=== PATIENT | female | born 1985 | race African-American/Black ===

== ENCOUNTER 2017-05-27 13:40 | Emergency (ER) | payer BC ==
[2017-05-27 13:47] VITALS: BP 134/83; PULSE 97; TEMP 98.3; BMI 35.6
--- NOTE | 2017-05-27 14:19 | PDOC ---
History of Present Illness - General Chief Complaint: Abscess Boil Stated Complaint: ABSCESS TO CHEST Time Seen by Provider: 05/27/17 13:45 - History of Present Illness Initial Comments: 05/27/17 14:48 "The patient is a 32 year old female with a significant PMH of DM and recurrent abscesses who presents to the emergency department with an abscess located on her mid-chest area. The patient denies fever, chills, or pain or drainage from the abscess. The patient states she saw her OB today who prescribed Bactrim and told her to come to the ER to have the abscess drained. The patient states she has had abscesses on her buttock, groin, and chest area in the past. Allergies: NKA Past surgical history: None reported. Social history: Smokes occassionally. No reported drug or alcohol use. " Past History - Past Medical History Allergies/Adverse Reactions: Allergies Allergy/AdvReac Type Severity Reaction Status Date / Time acetaminophen [From Vicodin] Allergy Verified 07/18/14 04:04 hydrocodone bitartrate Allergy Verified 07/18/14 04:04 [From Vicodin] Home Medications: Ambulatory Orders Sulfamethoxazole/Trimethoprim [Bactrim Ds Tablet] 1 each PO BID #14 tablet 05/27 COPD: No Diabetes: Yes Other medical history: RECURRENT ABSCESSES - Suicide/Smoking/Psychosocial Hx Smoking History: Never smoked Have you smoked in the past 12 months: Yes Number of Cigarettes Smoked Daily: 20 Information on smoking cessation initiated: Yes 'Breaking Loose' booklet given: 05/27/17 Hx Alcohol Use: No Drug/Substance Use Hx: No Substance Use Type: None Review of Systems - Review of Systems Comments:: 05/27/17 14:18 "GENERAL/CONSTITUTIONAL: No fever or chills. No weakness. HEAD, EYES, EARS, NOSE AND THROAT: No change in vision. No ear pain or discharge. No sore throat. CARDIOVASCULAR: No chest pain or shortness of breath. RESPIRATORY: No cough, wheezing, or hemoptysis. GASTROINTESTINAL: No nausea, vomiting, diarrhea or constipation. GENITOURINARY: No dysuria, frequency, or change in urination. MUSCULOSKELETAL: No joint or muscle swelling or pain. No neck or back pain. SKIN: + abscess to chest NEUROLOGIC: No headache, vertigo, loss of consciousness, or change in strength/ sensation. ENDOCRINE: No increased thirst. No abnormal weight change. HEMATOLOGIC/LYMPHATIC: No anemia, easy bleeding, or history of blood clots. ALLERGIC/IMMUNOLOGIC: No hives or skin allergy. " *Physical Exam - Vital Signs Last Vital Signs Temp Pulse Resp BP Pulse Ox 98.3 F 97 H 18 134/83 100 05/27/17 13:40 05/27/17 13:40 05/27/17 13:40 05/27/17 13:40 05/27/17 13:40 - Physical Exam Comments: 05/27/17 14:17 "GENERAL: Awake, alert, and fully oriented, in no acute distress HEAD: No signs of trauma EYES: PERRLA, EOMI, sclera anicteric, conjunctiva clear ENT: Auricles normal inspection, hearing grossly normal, nares patent, oropharynx clear without exudates. Moist mucosa NECK: Nontender, no stepoffs, Normal ROM, supple, no lymphadenopathy, JVD, or masses LUNGS: Breath sounds equal, clear to auscultation bilaterally. No wheezes, and no crackles HEART: Regular rate and rhythm, normal S1 and S2, no murmurs, rubs or gallops ABDOMEN: Soft, nontender, normoactive bowel sounds. No guarding, no rebound. No masses EXTREMITIES: Normal range of motion, no edema. No clubbing or cyanosis. No cords, erythema, or tenderness NEUROLOGICAL: Cranial nerves II through XII intact. 5/5 strength and sensation in all extremities, Normal speech, normal gait, normal cerebellar function SKIN: 1cm abscess to mid-chest area, minimal surrounding erythema, no active drainage " Procedures - Incision and Drainage I&D Site: Bilateral: Torso (Mid-chest area) Anesthesia: 1% Lidocaine Volume(ml): 2 Blade Size: 11 Attempts: 1 Complications: none Medical Decision Making - Medical Decision Making 05/27/17 14:17 32 F with DM presenting with abscess to mid-chest area. Abscess appears very superficial with no evidence of deeper infection and pt without any signs/ symptoms of systemic infection or bacteremia. - I&D - Wound culture 05/27/17 14:49 I&D performed with 3cc drainage of purulent material Wound culture collected Pt tolerated procedure well Will DC pt home with bactrim Pt is well appearing, with normal vitals. Clinically stable for DC at this time. I discussed the physical exam findings, ancillary test results and final diagnoses with the patient. I answered all of the patient's questions. The patient was satisfied with the care received and felt comfortable with the discharge plan and treatment plan. The patient agrees to follow up with the primary care physician within 24-72 hours. 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 If you experience worsening pain, swelling, redness, fevers, or any other concerning symptoms, return to the ER immediately. Otherwise, follow up with your primary doctor within 1 week to have your wound checked. - Post Discharge Activity - Attestations Physician Attestion: 05/27/17 15:03 I, Dr. Robinson Bashir MD, attest that this document has been prepared under my direction and personally reviewed by me in its entirety. I further attest, that it accurately reflects all work, treatment, procedures and medical decision -making performed by me.
[2017-05-27] MEDS ORDERED: SULFAMETHOXAZOLE/TRIMETHOPRIM 800MG/160MG D.S. TABLET PO ONE (15:03)
[2017-05-27] MEDS ORDERED: SULFAMETHOXAZOLE/TRIMETHOPRIM 800MG/160MG D.S. TABLET ONE (15:04)
== END 2017-05-27 15:20 | disposition home or self-care (01) ==
LOC: FER 13:40
PROC: 0H95XZZ Drainage of Chest Skin, External Approach (ICD-10-PCS; principal; 2017-05-27)
DX: L02.213 Cutaneous abscess of chest wall (principal); E11.9 Type 2 diabetes mellitus without complications; Z88.8 Allergy status to other drugs, medicaments and biological substances
CPT/HCPCS: 87070; 87077; 87205; 99284-25

== ENCOUNTER 2017-10-20 13:21 | Day surgery (SDC) | payer BC, OTHER ==
[2017-10-19 18:10] VITALS: BMI 35.5
[2017-10-20 14:05] LABS: BASO % 1.4 % (0-2.0); EOS % 2.8 % (0-4.5); HEMATOCRIT 37.7 % (32.4-45.2); HEMOGLOBIN 12.6 GM/dL (10.7-15.3); LYMPH % 45.9 % (8-40); MCH 28.5 pg (25.7-33.7); MCHC 33.4 g/dl (32.0-36.0); MEAN CELL VOLUME 85.4 fl (80-96); MEAN PLT VOLUME 7.1 fl (7.5-11.1); MONO % 8.4 % (3.8-10.2); NEUT % 41.5 % (42.8-82.8); PLATELET COUNT 321 K/MM3 (134-434); RBC 4.41 M/mm3 (3.60-5.2); RDW 14.2 % (11.6-15.6)
[2017-10-20] MEDS ORDERED: LIDOCAINE HCL/PF 2% SDV 5ML VIAL ONE (14:20)
[2017-10-20] MEDS ORDERED: MIDAZOLAM HCL 2 MG/2 ML SINGLE DOSE VIAL ONE ×2 (14:21)
[2017-10-20] MEDS ORDERED: PROPOFOL 20 ML ONE ×3 (14:21)
--- NOTE | 2017-10-20 15:51 | HP ---
History & Physical Update - History History: No Change - Physical Physical: No Change - Assessment Assessment: No Change - Plan Plan: No Change (no change from H&P 10/18)
[2017-10-20] MEDS ORDERED: ACETAMINOPHEN 325 MG TABLET (FP) PO PRN (15:52)
[2017-10-20] MEDS ORDERED: IBUPROFEN 800 MG/8 ML IJ IVPB PRN (15:52)
[2017-10-20] MEDS ORDERED: LACTATED RINGERS SOLUTION 1,000 ML IV SCH ×2 (16:00→16:30)
[2017-10-20] MEDS ORDERED: KETOROLAC TROMETHAMINE 30 MG/1 ML VIAL ONE (16:04)
[2017-10-20] MEDS ORDERED: PROMETHAZINE HCL 25 MG/1 ML VIAL IVPUSH PRN (16:17)
[2017-10-20] MEDS ORDERED: oxyCODONE HCL 5 MG TABLET PO PRN (16:17)
[2017-10-20] MEDS ORDERED: ONDANSETRON 4 MG/2 ML VIAL IVPUSH PRN (16:17)
[2017-10-20 16:57] VITALS: PULSE 76
[2017-10-20 17:12] LABS: ALBUMIN 3.6 g/dl (3.4-5.0); ANION GAP 12 MMOL/L (8-16); BLOOD UREA NITROGEN 10 mg/dL (7-18); CALCIUM 8.7 mg/dL (8.5-10.1); CHLORIDE 109 mmol/L (98-107); CO2 20 mmol/L (21-32); CREATININE 0.6 mg/dL (0.55-1.02); GLUCOSE,RANDOM 130 mg/dL (74-106); POTASSIUM 3.8 mmol/L (3.5-5.1); SGOT/AST 11 U/L (15-37); SGPT/ALT 20 U/L (12-78); SODIUM 141 mmol/L (136-145)
[2017-10-20 17:33] LABS: ALK PHOS 59 U/L (45-117); BILIRUBIN,TOTAL 0.4 mg/dL (0.2-1.0); TOT PROT 7.2 g/dl (6.4-8.2)
[2017-10-20 17:51] VITALS: BP 128/81; TEMP 97.6
--- NOTE | 2017-10-20 19:24 | OP ---
Operative Note - Note: Operative Date: 10/20/17 (dictation [id number]) Pre-Operative Diagnosis: missed Operation: suction D&C Findings: normal female genitalia Post-Operative Diagnosis: Same as Pre-op Surgeon: Rosaura Tapia Anesthesiologist/DIRECTOR OF ROTC: Shyam Rojas Anesthesia: MAC Specimens Removed: products of conception Estimated Blood Loss (mls): 10 Operative Report Dictated: Yes
--- NOTE | 2017-10-20 19:29 | HP ---
Admitting History and Physical - Admission Chief Complaint: Here for D&C for missed History of Present Illness: 32 yo female with missed here for suction D&C. Pt seen in office on 10/19, had ultrasound measuring fetus at 6 weeks 4 days, pt without cardiac activity. Fetus should have been measuring 8wks gestation. Pt denies pain/VB. Limitations to Obtaining History: No Limitations - Past Medical History ...LMP: 08/14/17 ...: Yes (miscarriage) Endocrine: Yes: Diabetes Mellitus Additional Past Medical History: sarcoidosis - Past Surgical History Additional Past Surgical History: D&C - Smoking History Smoking history: Never smoked Have you smoked in the past 12 months: Yes Aproximately how many cigarettes per day: 3 - Alcohol/Substance Use Hx Alcohol Use: Yes (occ) - Social History Usual Living Arrangement: Yes: Alone History of Recent Travel: No Home Medications - Allergies Allergies/Adverse Reactions: Allergies Allergy/AdvReac Type Severity Reaction Status Date / Time acetaminophen [From Vicodin] AdvReac Mild Vomiting Verified 10/19/17 18:01 hydrocodone bitartrate AdvReac Mild Vomiting Verified 10/19/17 18:01 [From Vicodin] - Home Medications Home Medications: Ambulatory Orders Empagliflozin [Jardiance] 10 mg PO DAILY 10/19/17 Metformin HCl [Metformin HCl ER] 500 mg PO DAILY 10/19/17 Ibuprofen [Motrin -] 600 mg PO QID PRN #28 tablet 10/20/17 Review of Systems - Review of Systems Constitutional: reports: No Symptoms Eyes: reports: No Symptoms HENT: reports: No Symptoms Neck: reports: No Symptoms Cardiovascular: reports: No Symptoms Respiratory: reports: No Symptoms Gastrointestinal: reports: No Symptoms Genitourinary: reports: No Symptoms Breasts: reports: No Symptoms Reported Musculoskeletal: reports: No Symptoms Integumentary: reports: No Symptoms Neurological: reports: No Symptoms Endocrine: reports: No Symptoms Hematology/Lymphatic: reports: No Symptoms Psychiatric: reports: No Symptoms Physical Examination Vital Signs: Vital Signs Temperature 97.6 F 10/20/17 17:53 Pulse Rate 76 10/20/17 17:53 Respiratory Rate 20 10/20/17 17:53 Blood Pressure 128/81 10/20/17 17:53 O2 Sat by Pulse Oximetry (%) 98 10/20/17 16:30 Constitutional: Yes: Well Nourished, No Distress, Calm Eyes: Yes: WNL HENT: Yes: WNL Neck: Yes: WNL Cardiovascular: Yes: WNL Respiratory: Yes: WNL Gastrointestinal: Yes: WNL Musculoskeletal: Yes: WNL Extremities: Yes: WNL Neurological: Yes: Alert, Oriented Psychiatric: Yes: Alert, Oriented Labs: CBC, BMP 10/20/17 13:50 10/20/17 13:50 Problem List - Problems (1) Missed Code(s): O02.1 - MISSED Assessment/Plan for suction D&C
--- NOTE | 2017-10-20 20:19 | OP ---
DATE OF OPERATION: 10/20/2017 PREOPERATIVE DIAGNOSIS: Missed . POSTOPERATIVE DIAGNOSIS: Missed . PROCEDURE: Suction dilation and curettage. SURGEON: Rosaura Tapia MD ANESTHESIA: MAC, by Shyam Rojas MD ESTIMATED BLOOD LOSS: 10 mL. COMPLICATIONS: None. SPECIMENS REMOVED: Products of conception. COUNTS: Sponge and instrument count correct. DISPOSITION: Stable to PACU. BRIEF HISTORY AND PROCEDURE: The patient is a 32-year-old female who was seen in the office and diagnosed with a missed based on several serial ultrasounds showing no cardiac activity. The patient was counseled on her options in the office and elects to undergo a suction D&C procedure. The patient was admitted to [facility] on October 20, 2017. Consents for the procedure were signed. The patient was then taken back to the operating room and given MAC anesthesia and placed in the lithotomy position. A speculum was placed inside the vagina. The anterior lip of the cervix was grasped with a single-tooth tenaculum. The cervix was serially dilated to accommodate a 7 curved suction curette, which was advanced to the fundus, and with several passes of the curette, all of the products of conception were removed. A sharp curettage was completed on all 4 sides, all 4 askew of the uterus, until adequate uterine cry was appreciated. One final pass of the suction curette was completed. All the instruments were removed from the vagina. Minimal lip bleeding was noticed from the cervical os and tenaculum sites were hemostatic. The patient was awoken from anesthesia, recovered in stable condition in the PACU after the procedure. Sponge, needle, instrument count was reported to be correct. ROSAURA TAPIA DO /[id number]
--- NOTE | 2017-10-21 18:01 | PATH ---
Surgical Pathology Report Patient Name: HEMA LAMBERT [facility]. Rec. #: [id number] /Age/Gender: 1985 (Age: 32) / F Account: [id number] Location: [facility] SURGICAL Taken: 10/20/2017 Received: 10/20/2017 Reported: 10/21/2017 Physicians: Rosaura Tapia M.D. Specimen(s) Received PRODUCTS OF CONCEPTION Clinical History Missed Final Diagnosis PRODUCTS OF CONCEPTION, SUCTION DILATION AND CURETTAGE: IMMATURE CHORIONIC VILLI AND DECIDUA CONSISTENT WITH PRODUCTS OF CONCEPTION. CHROMOSOMAL STUDIES ARE PENDING AND WILL BE REPORTED SEPARATELY AN ADDENDUM. Electronically Signed Danay Willoughby M.D. 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 Trisomy 16 is the most common autosomal trisomy associated with spontaneous abortions. RECOMMENDATION: Genetic counseling COMMENT: No other chromosome abnormalities are observed. The standard cytogenetic methodology utilized in this analysis does not routinely detect subtle rearrangements or low-level mosaicism and cannot detect microdeletions. Also, it cannot detect molecular cytogenetic abnormalities (such as microdeletions and microduplications) that may be detectable by microarray analysis. See [facility] report for additional details (Specimen #: [id number]) Danay Willoughby M.D. Gross Description Received fresh, labeled "products of conception for genetic testing," is a 6.0 x 5.2 x 0.4 cm aggregate of zepeda red soft tissue fragments. Villous tissue is identified. No somatic tissue is identified. A sales representative health insurance portion is placed in RPMI solution and sent for chromosomal analysis. An additional sales representative health insurance portion is submitted in one cassette. 10/20/201710/20/2017
== END 2017-10-20 17:58 | disposition home or self-care (01) ==
LOC: JASU-SURG 13:21
PROVIDERS: ATTEND Obstetrics & Gynecology
PROC: 10D17ZZ Extraction of Products of Conception, Retained, Via Natural or Artificial Opening (ICD-10-PCS; principal; 2017-10-20 14:30)
DX: O02.1 Missed abortion (principal)
CPT/HCPCS: 36415; 80053; 82962; 84702; 85025; 86850; 86900; 86901; 88305-TC; 94760